=== PATIENT | male | born 1970 | race Two or more races ===

== ENCOUNTER → 2025-07-17 | Emergency (ER) | payer OTHER ==
[~2025-07-17] VITALS: Ht 170.2 cm; Wt 74.8 kg
[~2025-07-17] MED LIST: CIPROFLOXACIN HCL 0.175 MG/DR DROPS OP ONE; METFORMIN HCL1000 M2 PO; TETRACAINE HCL 20 DR/ML DROPS OP ONE
== END | disposition left against medical advice (07) ==
LOC: ER 18:23
DX: H57.11 Ocular pain, right eye (principal); E11.9 Type 2 diabetes mellitus without complications; Z79.84 Long term (current) use of oral hypoglycemic drugs